=== PATIENT | female | born 1970 | race African-American/Black ===

== ENCOUNTER 2023-08-05 22:49 | Emergency (ER) | payer SELFPAY ==
[~2023-08-05] VITALS: Ht 175.3 cm; Wt 64.0 kg
[2023-08-05] MEDS ORDERED: LIDOCAINE 5% PATCH TOP ONE (23:00)
[2023-08-05] MEDS ORDERED: BACLOFEN 10MG TABLET PO ONE (23:00)
[2023-08-05] MEDS ORDERED: ACETAMINOPHEN 325MG TABLET PO ONE (23:00)
[2023-08-05 23:05] VITALS: O2SAT 96
[2023-08-05] MEDS ORDERED: ACETAMINOPHEN 650MG/20.3ML UDC PO ONE (23:45)
[2023-08-06] MEDS ORDERED: KETOROLAC 60MG/2ML VIAL IM ONE (02:45)
[2023-08-06] MEDS ORDERED: DEXAMETHASONE 10 MG/ML VIAL IM ONE (02:45)
[2023-08-06 06:23] VITALS: BP 162/95; PULSE 79; RESP 18
== END 2023-08-06 10:48 | disposition home or self-care (01) ==
LOC: ER 22:49
DX: M62.838 Other muscle spasm (principal); E03.8 Other specified hypothyroidism; M54.30 Sciatica, unspecified side; Z88.2 Allergy status to sulfonamides
CPT/HCPCS: 99284; 96372; J1100; J1885; Z7610